=== PATIENT | female | born 1950 | race Caucasian/White ===

== ENCOUNTER 2020-07-11 23:40 | Emergency (ER) | payer MEDICARE, OTHER, SELFPAY ==
--- NOTE | ~2020-07-11 | XR_ITS ---
XR chest 2V DATE: 07/12/2020 00:32 INDICATION: Chest pain TECHNIQUE: PA and lateral views COMPARISON: None FINDINGS: The right breast shadow is smaller than the left and there are some surgical clips in the r ight breast, consistent with prior partial mastectomy. Diffuse osteopenia. Pectus excavatum. Left adrenal prominence. No hilar or mediastinal enlargement. No pulmonary infiltrate or consolidatio n, pleural effusion or pulmonary vascular congestion or pneumothorax. IMPRESSION: No active disease Status post right partial mastectomy Diffuse osteopenia Reviewed, dictated and finalized at location A.
--- NOTE | 2020-07-11 23:42 | ECG_ITS ---
Measurements Intervals [place] Rate: 94 P: 35 [place]: 139 QRS: 4 QRSD: 97 T: -16 QT: 356 QTc: 447 Interpretive Statements SINUS RHYTHM POSSIBLE LEFT ATRIAL ENLARGEMENT LOW QRS VOLTAGE IN PRECORDIAL LEADS INCOMPLETE RIGHT BUNDLE BRANCH BLOCK NONSPECIFIC ST & T-WAVE ABNORMALITY- ANT/INF LEADS BASELINE ARTIFACT- I, III, AVR, AVL, AVF BORDERLINE ECG Electronically Signed On 07-12-2020 7:01:14 CDT by Hayden Lopez D.O.
[2020-07-11 23:51] VITALS: BP 147/84; PULSE 99; RESP 16; TEMP 36.7; O2SAT 100
[2020-07-11 23:57] LABS: Basophils Percent Auto 0.3 % (0.2-1.2); Eosinophils Absolute Auto 0.1 K/mm3 (0-0.3); Eosinophils Percent Auto 1.2 % (0-4.4); Hematocrit 45.3 % (37.0-47.0); Hemoglobin 15.1 g/dL (12.0-15.0); Immature Granulocyte Absolute 0.03 K/mm3 (0.00-0.031); Immature Granulocyte Percent A 0.3 % (0-0.5); Lymphocytes Absolute Auto 3.12 K/mm3 (0.9-3.2); Lymphocytes Percent Auto 32.2 % (18.3-44.2); Mean Corpuscular HGB Conc 33.3 g/dl (32-36); Mean Corpuscular Hemoglobin 32.9 pg (26-34); Mean Corpuscular Volume 98.7 fl (80-100); Mean Platelet Volume 9.4 fl (7.4-10.4); Monocytes Absolute Auto 0.8 K/mm3 (0.1-0.6); Monocytes Percent Auto 8.6 % (2.6-8.5); Neutrophils Absolute Auto 5.6 K/mm3 (1.3-6.7); Neutrophils Percent Auto 57.4 % (45.5-73.1); Platelet Count Result 223 k/mm3 (150-375); Red Blood Count 4.59 M/mm3 (4.2-5.4); Red Cell Distribution Width 13.2 % (11.5-14.5); White Blood Count 9.7 K/mm3 (4.5-10.0)
[2020-07-12 00:06] LABS: INR 0.9; Prothrombin Time 12.3 Seconds (11.1-14.7)
[2020-07-12 00:07] LABS: Partial Thromboplastin Time 26.3 SECONDS (22.3-36.8)
[2020-07-12 00:12] LABS: Anion Gap 8 mmol/L (8-16); Blood Urea Nitrogen 17 mg/dL (7-17); Calcium 9.9 mg/dL (8.4-10.2); Carbon Dioxide 31 mmol/L (22-30); Chloride 102 mmol/L (98-107); Estimated Glomerular Filt Rate > 60; Glucose 121 mg/dL (65-105); Potassium 3.6 mmol/L (3.4-5.0); Sodium 141 mmol/L (137-145)
[2020-07-12 00:24] LABS: Troponin I < 0.012 ng/mL (0.000-0.034)
[2020-07-12 01:23] VITALS: BP 141/65; PULSE 83; RESP 18; O2SAT 98
[2020-07-12 01:56] LABS: Alanine Aminotransferase 11 U/L (4-35); Albumin Level 4.7 g/dL (3.5-5.1); Alkaline Phosphatase 78 U/L (38-126); Aspartate Amino Transferase 36 U/L (14-36); Bilirubin,Total 0.4 mg/dL (0.2-1.3); Lipase 93 U/L (23-300)
--- NOTE | 2020-07-12 02:33 | ED.GENADULT ---
HPI - General Adult General Chief complaint: Chest Pain Stated complaint: chest pain Time Seen by Provider: 07/12/20 01:24 History of Present Illness HPI narrative: Patient is a 69-year-old female who presents the emergency department with chief complaint of chest pain. Patient reports that tonight she started having a discomfort in her chest she also felt as though she had some palpitations with this. Patient reports he been under a lot more stress lately reports that she had a history of palpitations before in the past and was evaluated at [facility] approximately 15 years ago and had a cardiac cath the patient reports has not had a stress test since then reports that she has history of hypertension and she smokes cigarettes. Patient states that her discomfort in her chest is basically gone right now she is not having any episodes of palpitations currently. Related Data Allergies Allergy/AdvReac Type Severity Reaction Status Date / Time Penicillins Allergy Mild Hives / Unverified 06/18/12 14:16 Red Face Review of Systems Review of Systems: Narrative: A 10 system review of systems was completed on the patient and is negative except for what is stated in the HPI. Nursing and ancillary documentation was reviewed. [facility] Social History Social History Gender identity (if verbalized by the patient): Female Comments Past medical history significant for hypertension Social history the patient smokes cigarettes Exam Narrative: Exam Narrative: GENERAL: Well-appearing, well-nourished, and in no acute distress. HEAD: Normocephalic, atraumatic. EYES: PERRLA and EOMI. ENT: Nares clear, no rhinorrhea or epistaxis. Mucous membranes moist. NECK: Supple. CHEST: Clear to auscultation. No respiratory distress. HEART: Regular rate and rhythm. No murmur heard. Normal peripheral pulses. ABDOMEN: Soft, nontender, nondistended, normal active bowel sounds. EXTREMITIES: Normal range of motion. No edema. SKIN: Warm, dry, no rash. NEURO: No focal deficits. Alert and oriented x3. PSYCH: Normal mood and affect. Course Vital Signs Vital signs: Vital Signs Temperature 36.7 C 07/11/20 23:51 Pulse Rate 99 07/11/20 23:51 Respiratory Rate 16 07/11/20 23:51 Blood Pressure 147/84 H 07/11/20 23:51 Pulse Oximetry 100 07/11/20 23:51 Temperature 36.7 C 07/11/20 23:51 Pulse Rate 74 07/12/20 03:00 Respiratory Rate 18 07/12/20 03:00 Blood Pressure 124/63 07/12/20 03:00 Pulse Oximetry 97 07/12/20 03:00 Medical Decision Making Vital Signs Vital Signs: Vital Signs Temperature 36.7 C 07/11/20 23:51 Pulse Rate 99 07/11/20 23:51 Respiratory Rate 16 07/11/20 23:51 Blood Pressure 147/84 H 07/11/20 23:51 Pulse Oximetry 100 07/11/20 23:51 Temperature 36.7 C 07/11/20 23:51 Pulse Rate 74 07/12/20 03:00 Respiratory Rate 18 07/12/20 03:00 Blood Pressure 124/63 07/12/20 03:00 Pulse Oximetry 97 07/12/20 03:00 Lab Data Result diagrams: 07/11/20 23:51 07/11/20 23:50 Labs: Lab Results 07/11/20 07/11/20 07/11/20 Range/Units 23:49 23:50 23:50 WBC (4.5-10.0) K/mm3 RBC (4.2-5.4) M/mm3 Hgb (12.0-15.0) g/dL Hct (37.0-47.0) % MCV (80-100) fl MCH (26-34) pg MCHC (32-36) g/dl RDW (11.5-14.5) % Plt Count (150-375) k/mm3 MPV (7.4-10.4) fl Immature Gran % (Auto) (0-0.5) % Neut % (Auto) (45.5-73.1) % Lymph % (Auto) (18.3-44.2) % [place] % (Auto) (2.6-8.5) % Eos % (Auto) (0-4.4) % Baso % (Auto) (0.2-1.2) % Lymph # (Auto) (0.9-3.2) K/mm3 [place] # (Auto) (0.1-0.6) K/mm3 Eos # (Auto) (0-0.3) K/mm3 Baso # (Auto) (0.0-0.1) K/mm3 Abs Immat Gran (auto) (0.00-0.031) K/mm3 Absolute Neuts (auto) (1.3-6.7) K/mm3 Absolute Nucleated RBC (0.0-0.012) K/mm3 Nucleated RBC % (0.0-0.2) % PT 12.3 (11.1-14.7) Seconds INR 0.9 APTT 2
[2020-07-12 03:00] VITALS: BP 124/63; PULSE 74; RESP 18; O2SAT 97
[2020-07-12 04:04] LABS: Troponin I < 0.012 ng/mL (0.000-0.034)
[2020-07-12 04:32] VITALS: BP 127/73; PULSE 78; RESP 20; O2SAT 97
== END 2020-07-12 04:41 | disposition home or self-care (01) ==
PROVIDERS: Emergency Provider Emergency Medicine; PCP Internal Medicine
DX: R07.89 Other chest pain (principal); I10 Essential (primary) hypertension; F17.210 Nicotine dependence, cigarettes, uncomplicated
CPT/HCPCS: 36415; 71046; 80048; 80076; 83690; 84484; 85025; 85610; 85730; 93005; 99284

== ENCOUNTER 2021-07-08 07:58 | Outpatient (CLI) | payer MEDICARE, OTHER, SELFPAY | END 2021-07-08 07:59 | disposition home or self-care (01) | LOC: ANHAUDIO 08:00 | PROVIDERS: PCP Internal Medicine; Visit Provider Nurse Practitioner Family | DX: R42 Dizziness and giddiness (principal) | CPT/HCPCS: 92537; 92540; 92546; 92557; 92567 ==

== ENCOUNTER 2022-05-25 15:14 | Emergency (ER) | payer MEDICARE, OTHER, SELFPAY ==
--- NOTE | ~2022-05-25 | XR_ITS ---
XR chest 2V DATE: 05/25/2022 15:44 INDICATION: Back pain, right arm pain. History of hypertension. TECHNIQUE: PA and lateral views COMPARISON: July 12, 2020 PA and lateral chest FINDINGS: Heart size is within normal limits. No hilar or mediastinal enlargement. No pulmonary infil trate or consolidation, pleural effusion or pulmonary vascular congestion or pneumothorax. Pectus excavatum. Osteopenia. Mild scoliosis and degenerative change of the thoracic spine. There are couple surgical clips in the right breast. IMPRESSION: No active cardiopulmonary disease or significant change since July 12, 2020 Reviewed, dictated and finalized at location B. OPERATOR
--- NOTE | 2022-05-25 15:17 | ECG_ITS ---
Measurements Intervals [place] Rate: 62 P: 230 CT: 184 QRS: 44 QRSD: 96 T: 16 QT: 438 QTc: 447 Interpretive Statements SINUS RHYTHM INCOMPLETE RIGHT BUNDLE BRANCH BLOCK LOW QRS VOLTAGE IN PRECORDIAL LEADS BORDERLINE ST-T WAVE ABNORMALITY- ANT/INF LEADS BASELINE ARTIFACT- I, II, III, AVR, AVL, AVF BORDERLINE ECG COMPARED TO ECG 07/11/2020 23:43:55 NO SIGNIFICANT CHANGES Electronically Signed On 05-25-2022 16:50:11 ARTIFACTS CONSERVATOR by Hayden oLpez D.O.
[2022-05-25 15:49] VITALS: BP 149/71; PULSE 65; RESP 18; TEMP 36.4; O2SAT 100
[2022-05-25 17:14] LABS: Basophils Percent Auto 0.4 % (0.2-1.2); Eosinophils Percent Auto 0.1 % (0-4.4); Hematocrit 44.3 % (37.0-47.0); Immature Granulocyte Absolute 0.04 K/mm3 (0.00-0.031); Immature Granulocyte Percent A 0.5 % (0-0.5); Lymphocytes Absolute Auto 0.93 K/mm3 (0.9-3.2); Mean Corpuscular HGB Conc 33.9 g/dl (32-36); Mean Corpuscular Hemoglobin 33.4 pg (26-34); Mean Corpuscular Volume 98.7 fl (80-100); Mean Platelet Volume 9.7 fl (7.4-10.4); Monocytes Absolute Auto 0.4 K/mm3 (0.1-0.6); Monocytes Percent Auto 4.8 % (2.6-8.5); Neutrophils Percent Auto 83.2 % (45.5-73.1); Platelet Count Result 212 k/mm3 (150-375); Red Blood Count 4.49 M/mm3 (4.2-5.4); Red Cell Distribution Width 13.5 % (11.5-14.5); White Blood Count 8.4 K/mm3 (4.5-10.0)
[2022-05-25 17:24] LABS: Partial Thromboplastin Time 25.7 SECONDS (22.3-36.8); Prothrombin Time 12.8 Seconds (11.1-14.7)
[2022-05-25 17:26] LABS: Alanine Aminotransferase 14 U/L (6-35); Albumin Level 4.6 g/dL (3.5-5.1); Alkaline Phosphatase 72 U/L (38-126); Anion Gap 8 mmol/L (8-16); Aspartate Amino Transferase 23 U/L (14-36); Bilirubin,Total 0.9 mg/dL (0.2-1.3); Blood Urea Nitrogen 15 mg/dL (7-17); Calcium 9.2 mg/dL (8.4-10.2); Carbon Dioxide 26 mmol/L (22-30); Chloride 104 mmol/L (98-107); Estimated CRCL calculation 64 ml/min; Estimated Glomerular Filt Rate > 60; Glucose 135 mg/dL (65-110); Lipase 41 U/L (23-300); Potassium 4.6 mmol/L (3.4-5.0); Sodium 138 mmol/L (137-145)
[2022-05-25 17:37] LABS: Troponin I < 0.012 ng/mL (0.000-0.034)
[2022-05-25 19:28] LABS: Troponin I < 0.012 ng/mL (0.000-0.034)
--- NOTE | 2022-05-25 20:34 | ED.GENADULT ---
HPI - General Adult General Chief complaint: Unspecified <EDER Avila Last Filed: 05/26/22 02:51> Stated complaint: back pain to R arm pain <EDER Avila Last Filed: 05/26/22 02:51> Time Seen by Provider: 05/25/22 20:22 <EDER Avila Last Filed: 05/26/22 02:51> Source: patient <EDER Avila Last Filed: 05/26/22 02:51> Mode of arrival: ambulatory <EDER Avila Last Filed: 05/26/22 02:51> Limitations: no limitations <EDER Avila Last Filed: 05/26/22 02:51> History of Present Illness HPI narrative: This is a 71-year-old female with PMH of HTN who presents to the ED with chief complaint of right sided back pain and right radiating arm pain onset today. She states this did occur shortly after that she closed her sliding glass door. Denies any further injury or trauma. She states the pain is primarily in the back and has intermittent radiation of a burning pain down the back of the right arm. She states the pain radiates into the ulnar side of the right forearm into the ulnar fingers. States the pain is present at times with deeper breathing. Range of motion of the shoulder also worsens the pain. She denies any numbness or weakness. She denies neck pain, chest pain, shortness of breath, headache. Triage note reports feeling faint, however she has had this in the past, and only occurs when she stands up too fast. <Vitor Jessica PA-C - Last Filed: 05/26/22 02:51> Related Data Allergies/adverse reactions: Allergies Allergy/AdvReac Type Severity Reaction Status Date / Time Penicillins Allergy Mild Hives / Verified 05/25/22 22:09 Red Face <EDER Avila Last Filed: 05/26/22 02:51> Review of Systems Review of Systems: CONSTITUTIONAL: Denies fever, chills, or sweats. EYES: Denies visual changes, redness, or discharge. ENT: Denies rhinorrhea, congestion, sore throat, or otalgia. CARDIOVASCULAR: Denies chest pain, palpitations, or edema. RESPIRATORY: Denies cough or dyspnea. GASTROINTESTINAL: Denies abdominal pain, nausea, vomiting, or diarrhea. GENITOURINARY: Denies dysuria or hematuria. SKIN: Denies rash or itching. MUSCULOSKELETAL: Endorses right-sided upper back pain and right upper extremity pain. Denies neck pain, other joint pain, or myalgia. NEUROLOGIC: Denies headache, numbness, dizziness, or weakness. PSYCHIATRIC: Denies anxiety or depression. <Vitor Jessica PA-C - Last Filed: 05/26/22 02:51> [facility] Social History Social History: Social History Gender identity (if verbalized by the patient): Female <Vitor Jessica PA-C - Last Filed: 05/26/22 02:51> Exam Narrative: GENERAL: Well-appearing, well-nourished, and in no acute distress. HEAD: Normocephalic, atraumatic. EYES: PERRLA and EOMI. ENT: Nares clear, no rhinorrhea or epistaxis. Mucous membranes moist. Oropharynx without tonsillar hypertrophy exudate or other lesions. NECK: Supple. No adenopathy or masses. CHEST: No respiratory distress. Clear to auscultation. No wheezes rales or rhonchi. Deep inspiration recreates pain in the right scapular area. HEART: Regular rate and rhythm. No murmur heard. Normal peripheral pulses. ABDOMEN: Soft, nontender, nondistended, normal active bowel sounds. EXTREMITIES: Right shoulder: Active and passive range of motion of the right shoulder is intact fully. Significant tenderness to palpation in the right scapular region. Soft compartments. Neurovascularly intact distally. Left shoulder: Benign. No midline tenderness throughout the CTLS spine. No further tenderness throughout the right upper extremity. SKIN: Warm, dry, no rash. No wounds or overlying skin changes in the right shoulder or back. NEURO: Alert and oriented x3. No focal deficits. PSYCH: Normal mood and affect. <Vitor Jessica PA-C - Last Filed: 05/26/22 02:51> Course EXTRACTION OPERATOR/PA Physician Supervision This is a was performed by both
[2022-05-25] MEDS: ORPHENADRINE CITRATE 100 MG TABLET.ER PO (20:44)
[2022-05-25 20:45] VITALS: BP 169/81; PULSE 58; RESP 19; O2SAT 100
[2022-05-25 20:46] VITALS: BP 158/84
[2022-05-25 20:47] VITALS: BP 170/118; PULSE 66
[2022-05-25 20:48] VITALS: BP 171/82; PULSE 65
[2022-05-25 21:11] LABS: Troponin I < 0.012 ng/mL (0.000-0.034)
[2022-05-25] MEDS: HYDROcodone/acetaminophen (*CRX) 7.5-325 MG TABLET 1 TAB PO (22:13)
[2022-05-25 22:18] LABS: D Dimer 0.74 ug/mL (<0.48)
[2022-05-25] MEDS: KETOROLAC 30 MG/ML VIAL (*BKC) IV PUSH (23:30)
[2022-05-25 23:34] VITALS: BP 150/75; PULSE 61; RESP 18; O2SAT 100
== END 2022-05-25 23:45 | disposition home or self-care (01) ==
PROVIDERS: Emergency Medicine; Physician Assistant; Emergency Provider Emergency Medicine; PCP Internal Medicine
DX: S29.012A Strain of muscle and tendon of back wall of thorax, initial encounter (principal); I45.10 Unspecified right bundle-branch block; X50.0XXA Overexertion from strenuous movement or load, initial encounter
CPT/HCPCS: 36415; 71046; 80053; 83690; 84484; 85025; 85380; 85610; 85730; 93005; 96374; 99284; A9270; J1885

== ENCOUNTER 2022-06-15 06:35 | Outpatient (CLI) | payer MEDICARE, OTHER, SELFPAY ==
--- NOTE | ~2022-06-15 | MR_ITS ---
MRI of the cervical spine Clinical History: Radicular pain Technique: Axial T2-weighted and gradient images, and sagittal T1-weighted, T2-weighted, and STIR manuela ges were acquired. Findings: There is no fracture or subluxation of the cervical spine. There is mild amorphous marrow e arthur in the C7 and T1 vertebral bodies, possibly reactive due to underlying degenerative disc change. T1 marrow signal is preserved. There is partial fusion across the C3-C4 disc space. At C2-C3, there is mild degenerative disc change. No disc bulge or herniation evident. No spinal emil l stenosis, cord compression, or neural foraminal narrowing identified. At C3-C4, there is no disc bulge or herniation. No spinal canal stenosis, cord compression, or neural foraminal narrowing. At C4-C5, there is minimal disc osteophyte complex. There is facet joint arthropathy, right worse anupam n left. No spinal canal stenosis, cord compression, or neural foraminal narrowing. At C5-C6, there is disc osteophyte complex, with mild canal stenosis and cord compression at this lev el. There is probable bilateral neural foraminal narrowing. At C6-C7, there is disc osteophyte complex with mild canal stenosis and cord compression, and bilater al neural foraminal narrowing. There is mild spinal cord edema at the C6 level. Paravertebral soft tissues are unremarkable. Impression: Mild canal stenosis and cord compression at C5-C6 and C6-C7, related to disc osteophyte complexes. Mild spinal cord edema at the C6 level, presumably related to compression. This could reflect early d eveloping myelomalacia. Additional mild degenerative changes, as above. Reviewed, dictated and finalized at [facility]. Impression: Mild canal stenosis and cord compression at C5-C6 and C6-C7, related to disc os teophyte complexes. Mild spinal cord edema at the C6 level, presumably related to compression. This could reflect early developing myelomalacia. Additional mild degenerative changes, as above.
== END 2022-06-15 06:36 | disposition home or self-care (01) ==
PROVIDERS: PCP Internal Medicine; Visit Provider Internal Medicine
DX: M54.10 Radiculopathy, site unspecified (principal)
CPT/HCPCS: 72141